=== PATIENT | female | born 1970 | race Hispanic/Latino ===

== ENCOUNTER 2024-05-04 04:00 | Emergency (ER) | payer SELFPAY ==
[2024-05-04 04:49] LABS: #Basophils 0.03 10x3/uL (0.0-0.2); #Eosinophils Less than 0.03 10x3/uL (0.0-0.7); %Basophils 0.3 % (0.0-1.0); %Lymphocytes 9.1 % (21.0-51.0); %Monocytes 8.3 % (0.0-10.0); Hematocrit 41.6 % (36.0-47.0); Hemoglobin 14.1 g/dL (12.0-16.0); Mean Corpuscular HGB CONC 33.9 g/dL (32.0-36.0); Mean Corpuscular Hemoglobin 31.3 pg (27.0-31.0); Mean Corpuscular Volume 92.4 fL (78.0-98.0); Mean Platelet Volume 10.4 fL (7.4-10.4); Platelet Count 227 10x3/uL (130-400); RBC Distribution Width 12.2 % (11.5-14.5)
[2024-05-04] MEDS ORDERED: Ketorolac Tromethamine 30 MG (1 mL) VIAL ONE (05:20)
[2024-05-04 06:34] LABS: ALT (SGPT) 103 U/L (Less than 34); AST (SGOT) 94 U/L (11-34); Albumin 3.7 g/dL (3.1-4.5); Alkaline Phosphatase 106 U/L (40-110); BUN (Urea Nitrogen) 12 mg/dL (9.8-20.1); Bilirubin, Total 0.4 mg/dL (0.3-1.2); Calc. Creatinine Clearance 0 mL/min (70-130); Calcium 9.3 mg/dL (7.8-10.44); Carbon Dioxide 22 mmol/L (22-29); Estimated GFR 107; Globulin 4.2 g/dL (2.4-3.5); Glucose 155 mg/dL (70-105); Protein, Total 7.9 g/dL (6.0-8.3)
[2024-05-04 07:13] LABS: Anion Gap 15 mmol/L (10-20); Chloride 105 mmol/L (98-107); Potassium 3.7 mmol/L (3.5-5.1); Sodium 138 mmol/L (136-145)
== END 2024-05-04 06:50 | disposition home or self-care (01) ==
LOC: ERS 04:00
DX: J11.1 Influenza due to unidentified influenza virus with other respiratory manifestations (principal); Z75.8 Other problems related to medical facilities and other health care
CPT/HCPCS: 71045; 80053; 83605; 85025; 87040; 87428; 93005; 94760; 96374; J1885